=== PATIENT | female | born 1960 | race Caucasian/White ===

== ENCOUNTER 2017-02-04 19:57 | Inpatient (IN) | payer OTHER ==
[~2017-02-04] VITALS: Ht 165.1 cm; Wt 96.3 kg
[~2017-02-04 19:57] MED LIST: ALPRAZOLAM0.25 M2 PO; ASPIRIN81 M2 PO; AUGMENTIN875 MG PO; BACLOFEN20 MG PO; BACTRIM,SEPT1 TABLET PO; BETHANECHOL CHL25 MG PO; CARAFATE100 MG/ML PO; CEFUROXIME500 MG PO; CHERATUSSIN AC473 ML PO; CIPRO500 MG PO; CIPROFLOXACIN500 M1 PO; CLINDAMYCIN HC300 MG PO; CLOTRIMAZOLE10 MG PO; COLACE100 MG PO; COMPLEX B-1001 EACH PO; CYMBALTA60 MG PO; DOCUSATE SODIU100 MG PO; DULOXETINE HCL60 MG PO; FLAGYL500 MG PO; HUMALOG100 UNIT/1 SC; HUMALOG100 UNIT/2 SC; HUMULIN R100 UNITS/ SC; HUMULIN R500 UNITS/ SC; INDOCIN50 MG PO; INSULIN PUMP SCCONT; KEFLEX500 MG PO; LANTUS 10100 UNITS/ PO; LASIX40 MG PO; LEVOTHYROXINE100 MCG PO; LEVOTHYROXINE88 MCG PO; LEVOXYL100 MCG PO; LISINOPRIL40 MG PO; LO-DOSE ASPIRIN81 M1 PO; LOVAZA1 GM PO; LOW DOSE ASPIRI81 M1 PO; LOW DOSE ASPIRI81 M2 PO; LYRICA300 MG PO; MAXALT10 MG PO; MIRALAX17 GM PO; MIRALAX255 GM PO; NAPROXEN500 MG PO; NORCO 10/3251 TABLET PO; NORCO 5/3251 TABLET PO; NORTRIPTYLINE H50 MG PO; NOVOLIN,HU100 UNITS1 SQ; PERCOCET 5/31 TABLET PO; POLYETHYLENE GL17 GM PO; PRAVACHOL20 MG PO; RANITIDINE HCL300 MG; RANITIDINE HCL300 MG PO; RIZATRIPTAN10 MG PO; SKELAXIN400 M1 PO; TENORMIN25 MG PO; TENORMIN50 MG PO; TESSALON200 MG PO; TOPAMAX25 MG PO; TOPIRAMATE25 MG PO; TRAMADOL HCL50 MG PO; ULTRAM50 MG PO; VENTOLIN HFA18 GM IH; VICTOZA0.6 MG/0.1; VITAMIN B-6200 MG PO; VITAMIN D-32000 UNI2 PO; VITAMIN D32000 UNIT PO; XANAX0.25 MG PO; ZANTAC300 MG PO; ZESTRIL40 MG PO; ZOFRAN4 MG PO; [UNRECOGNIZED DRUG - OTHER] SQ
[2017-02-04 20:36] LABS: EOSINOPHIL (%) 0.1 % (0-5); HEMATOCRIT 41.2 % (36.0-46.0); IMMATURE GRANULOCYTE (%) 0.4 % (0.0-0.7); IMMATURE GRANULOCYTE COUNT 0.1 K/uL; INSTRUMENT ABS NEUTROPHIL CT 13.2 K/uL; LYMPHOCYTE COUNT 0.4 K/uL (1.0-2.8); MCH 27.3 PG (29.0-34.0); MCHC 32.5 G/DL (30.0-36.0); MCV 84.1 FL (83-99); MEAN PLAT.VOLUME 10.1 uM^3 (9.5-12.4); MONOCYTE COUNT 0.4 K/uL (0-0.8); NEUTROPHIL (%) 93.7 % (45-76); NEUTROPHIL COUNT 13.2 K/uL (1.8-6.4); PLATELET COUNT 230 K/uL (156-360); RBC DIS.WIDTH-CV 14.7 % (11.8-14.6); RBC DIS.WIDTH-SD 45.1 % (39-53); WHITE BLOOD COUNT 14.1 K/uL (4.1-10.2)
[2017-02-04 20:54] LABS: ADD MIUA? YES; BILIRUBIN NEGATIVE; BLOOD MODERATE; COLOR YELLOW ((YELLOW)); GLUCOSE (STRIP) NEGATIVE; KETONES NEGATIVE; LEUKOCYTES LARGE; NITRITE NEGATIVE; PROTEIN (STRIP) NEGATIVE; SPECIFIC GRAVITY 1.009 (1.000-1.030); UROBILINOGEN 0.2 MG/DL (0.2-1.0)
[2017-02-04 20:54] LABS: CHLORIDE 97 mEq/L (99-109); SODIUM 133 mEq/L (136-147)
[2017-02-04 20:56] LABS: GLUCOSE 130 mg/dL (70-99)
[2017-02-04 20:57] LABS: ANION GAP 13 MEQ/L (2-14)
[2017-02-04 20:59] LABS: INFLUENZA A VIRAL ANTIGEN NEGATIVE; INFLUENZA B VIRAL ANTIGEN NEGATIVE
[2017-02-04 20:59] LABS: ALKALINE PHOSPHATASE 111 IU/L (3-129)
[2017-02-04 21:00] LABS: GFR ESTIMATE (CALCULATED) 31 mL/min/
[2017-02-04 21:01] LABS: UREA NITROGEN (BUN) 21 mg/dL (9-23)
[2017-02-04 21:03] LABS: TROP-I INTERPRETATION NEGATIVE; TROPONIN-I < 0.01 ng/mL (0.0-0.30)
[2017-02-04 21:12] LABS: BACTERIA 3+ /HPF; EPITHELIAL CELLS 1+ /HPF; UCUL ADDED? YES; WHITE BLOOD CELLS TNTC /HPF (0-5)
[2017-02-04 21:13] LABS: MUCUS NONE SEEN /LPF; RED BLOOD CELLS 20-30 /HPF (0-5)
[2017-02-04] MEDS ORDERED: LYRICA300 MG PO (23:08)
[2017-02-04] MEDS ORDERED: DAILY VITAMIN1 EAC4 PO (23:09)
[2017-02-04] MEDS ORDERED: NORTRIPTYLINE H75 MG PO (23:10)
[2017-02-04] MEDS ORDERED: LAMICTAL25 MG PO (23:11)
[2017-02-05 02:12] VITALS: BP 132/61
[2017-02-05 07:42] LABS: POINT-OF-CARE METER ID UU14162508
[2017-02-05 08:12] VITALS: BP 108/56
[2017-02-05 12:21] LABS: POINT-OF-CARE METER ID UU14162508
[2017-02-05 13:45] LABS: TROP-I INTERPRETATION NEGATIVE; TROPONIN-I 0.02 ng/mL (0.0-0.30)
[2017-02-05 13:58] VITALS: BP 172/74
[2017-02-05 14:04] VITALS: BP 165/70
[2017-02-05 16:53] VITALS: BP 138/63
[2017-02-05 21:25] LABS: TROP-I INTERPRETATION NEGATIVE; TROPONIN-I 0.04 ng/mL (0.0-0.30)
[2017-02-06] VITALS (8 sets, daily range): BP systolic 112–185; BP diastolic 53–79
[2017-02-06 00:28] LABS: C DIFF TOXIN NEGATIVE (NEGATIVE)
[2017-02-06 00:36] LABS: PROBE CHECK PASS; SPECIMEN PROCESSING CONTROL PASS
[2017-02-06 07:51] LABS: EOSINOPHIL (%) 0.8 % (0-5); EOSINOPHIL COUNT 0.1 K/uL (0-0.3); HEMATOCRIT 30.7 % (36.0-46.0); IMMATURE GRANULOCYTE (%) 0.5 % (0.0-0.7); INSTRUMENT ABS NEUTROPHIL CT 5.4 K/uL; LYMPHOCYTE COUNT 0.4 K/uL (1.0-2.8); MCH 27.2 PG (29.0-34.0); MCHC 32.6 G/DL (30.0-36.0); MCV 83.7 FL (83-99); MONOCYTE (%) 5.8 % (3-12); MONOCYTE COUNT 0.4 K/uL (0-0.8); NEUTROPHIL (%) 86.9 % (45-76); NEUTROPHIL COUNT 5.4 K/uL (1.8-6.4); RBC DIS.WIDTH-CV 15.3 % (11.8-14.6); RBC DIS.WIDTH-SD 46.8 % (39-53)
[2017-02-06 07:55] LABS: ALKALINE PHOSPHATASE 86 IU/L (3-129); ANION GAP 10 MEQ/L (2-14); CHLORIDE 95 MEQ/L (99-109); DIRECT BILIRUBIN 1.2 mg/dL (0.0-0.3); GFR ESTIMATE (CALCULATED) 49 mL/min/; POTASSIUM 4.4 MEQ/L (3.7-5.4); RED BLOOD COUNT 3.67 M/uL (3.80-5.20); SAMPLE HEMOLYSIS CHECK 0; SAMPLE ICTERIC CHECK 0; SAMPLE LIPEMIA CHECK 0; SODIUM 130 MEQ/L (136-147); TOTAL BILIRUBIN 1.8 MG/DL (0.0-1.0); UREA NITROGEN (BUN) 20 mg/dL (9-23); WHITE BLOOD COUNT 6.2 K/uL (4.1-10.2)
[2017-02-06 07:56] LABS: GLUCOSE 325 mg/dL (70-99); TROP-I INTERPRETATION NEGATIVE; TROPONIN-I 0.04 ng/mL (0.0-0.30)
[2017-02-06 08:29] LABS: MEAN PLAT.VOLUME 10.7 uM^3 (9.5-12.4); PLAT.SUFFICIENCY DECREASED
[2017-02-06 08:33] LABS: PLATELET COUNT 117 K/uL (156-360)
[2017-02-06 09:38] LABS: LIPASE 6 U/L (1.0-51.0)
[2017-02-06 11:51] LABS: HBSG INDEX 0.24
[2017-02-06 11:52] LABS: ANTI-HEPATITIS A VIRUS (IGM) Nonreactive; HAV INDEX 0.12; HPCA INDEX 0.12
[2017-02-06 11:54] LABS: ANTI-HEPATITIS B CORE (IGM) Nonreactive; HBC IgM INDEX 0.09
[2017-02-07] VITALS (8 sets, daily range): BP systolic 109–184; BP diastolic 53–83
[2017-02-07 07:30] LABS: ALKALINE PHOSPHATASE 91 IU/L (3-129); ANION GAP 8 MEQ/L (2-14); CHLORIDE 95 MEQ/L (99-109); GFR ESTIMATE (CALCULATED) > 59 mL/min/; GLUCOSE 283 mg/dL (70-99); POTASSIUM 4.4 MEQ/L (3.7-5.4); SAMPLE HEMOLYSIS CHECK 0; SAMPLE ICTERIC CHECK 0; SAMPLE LIPEMIA CHECK 0; SODIUM 132 MEQ/L (136-147); TOTAL BILIRUBIN 1.5 MG/DL (0.0-1.0); UREA NITROGEN (BUN) 18 mg/dL (9-23)
[2017-02-07 07:34] LABS: EOSINOPHIL COUNT 0.1 K/uL (0-0.3); HEMATOCRIT 33.5 % (36.0-46.0); IMMATURE GRANULOCYTE (%) 0.6 % (0.0-0.7); INSTRUMENT ABS NEUTROPHIL CT 3.9 K/uL; LYMPHOCYTE COUNT 0.4 K/uL (1.0-2.8); MCH 27.4 PG (29.0-34.0); MCHC 32.8 G/DL (30.0-36.0); MCV 83.5 FL (83-99); MONOCYTE (%) 8.6 % (3-12); MONOCYTE COUNT 0.4 K/uL (0-0.8); NEUTROPHIL (%) 81.7 % (45-76); NEUTROPHIL COUNT 3.9 K/uL (1.8-6.4); RBC DIS.WIDTH-CV 15.9 % (11.8-14.6); RBC DIS.WIDTH-SD 48.3 % (39-53); RED BLOOD COUNT 4.01 M/uL (3.80-5.20); WHITE BLOOD COUNT 4.8 K/uL (4.1-10.2)
[2017-02-07 07:42] LABS: PLATELET COUNT 214 K/uL (156-360)
[2017-02-07 14:34] LABS: POINT-OF-CARE METER ID UU14162508
[2017-02-08 03:52] VITALS: BP 149/63
[2017-02-08 08:08] LABS: ALKALINE PHOSPHATASE 90 IU/L (3-129); ANION GAP 7 MEQ/L (2-14); CHLORIDE 95 MEQ/L (99-109); GFR ESTIMATE (CALCULATED) > 59 mL/min/; GLUCOSE 304 mg/dL (70-99); POTASSIUM 4.1 MEQ/L (3.7-5.4); SAMPLE HEMOLYSIS CHECK 0; SAMPLE ICTERIC CHECK 0; SAMPLE LIPEMIA CHECK 0; SODIUM 131 MEQ/L (136-147); UREA NITROGEN (BUN) 21 mg/dL (9-23)
[2017-02-08 08:16] LABS: EOSINOPHIL (%) 1.8 % (0-5); EOSINOPHIL COUNT 0.1 K/uL (0-0.3); IMMATURE GRANULOCYTE COUNT 0.1 K/uL; INSTRUMENT ABS NEUTROPHIL CT 2.6 K/uL; LYMPHOCYTE COUNT 0.7 K/uL (1.0-2.8); MCH 26.6 PG (29.0-34.0); MCHC 32.2 G/DL (30.0-36.0); MCV 82.7 FL (83-99); MONOCYTE (%) 13.6 % (3-12); MONOCYTE COUNT 0.5 K/uL (0-0.8); NEUTROPHIL (%) 65.6 % (45-76); NEUTROPHIL COUNT 2.6 K/uL (1.8-6.4); RBC DIS.WIDTH-CV 15.2 % (11.8-14.6); RBC DIS.WIDTH-SD 46.1 % (39-53); RED BLOOD COUNT 3.87 M/uL (3.80-5.20)
[2017-02-08 08:19] LABS: MEAN PLAT.VOLUME 10.3 uM^3 (9.5-12.4); PLAT.SUFFICIENCY DECREASED; PLATELET COUNT 121 K/uL (156-360)
[2017-02-08 08:48] VITALS: BP 160/71
[2017-02-08 12:37] VITALS: BP 168/72
[2017-02-08 12:54] LABS: GLUCOSE 353 mg/dL (70-99)
[2017-02-08 17:04] LABS: GLUCOSE 389 mg/dL (70-99)
[2017-02-08 17:19] VITALS: BP 158/70
[2017-02-08 19:27] VITALS: BP 168/73
[2017-02-08 21:21] LABS: POINT-OF-CARE METER ID UU14162508
[2017-02-08 23:29] VITALS: BP 164/71
[2017-02-09 03:09] VITALS: BP 142/70
[2017-02-09 08:00] VITALS: BP 156/67
[2017-02-09 13:15] LABS: POINT-OF-CARE METER ID UU14162508
[2017-02-09 16:00] VITALS: BP 169/77
[2017-02-09 17:28] LABS: POINT-OF-CARE METER ID UU14162508
[2017-02-09 19:45] VITALS: BP 142/76
[2017-02-09 21:37] LABS: POINT-OF-CARE METER ID UU14162508
[2017-02-10 00:15] VITALS: BP 128/68
[2017-02-10 03:13] VITALS: BP 136/72
[2017-02-10 06:46] LABS: POINT-OF-CARE METER ID UU14162508
[2017-02-10 07:27] LABS: ANION GAP 7 MEQ/L (2-14); CHLORIDE 93 MEQ/L (99-109); GFR ESTIMATE (CALCULATED) > 59 mL/min/; GLUCOSE 342 mg/dL (70-99); POTASSIUM 4.6 MEQ/L (3.7-5.4); SAMPLE HEMOLYSIS CHECK 0; SAMPLE ICTERIC CHECK 0; SAMPLE LIPEMIA CHECK 0; SODIUM 132 MEQ/L (136-147); TOTAL BILIRUBIN 0.8 MG/DL (0.0-1.0); UREA NITROGEN (BUN) 20 mg/dL (9-23)
[2017-02-10 07:28] LABS: ALKALINE PHOSPHATASE 129 IU/L (3-129)
[2017-02-10 07:30] LABS: HEMATOCRIT 35.4 % (36.0-46.0); MCH 26.8 PG (29.0-34.0); MCHC 32.2 G/DL (30.0-36.0); MCV 83.3 FL (83-99); MEAN PLAT.VOLUME 10.3 uM^3 (9.5-12.4); RBC DIS.WIDTH-CV 14.8 % (11.8-14.6); RBC DIS.WIDTH-SD 44.9 % (39-53); RED BLOOD COUNT 4.25 M/uL (3.80-5.20)
[2017-02-10 07:36] LABS: PLATELET COUNT 174 K/uL (156-360); WHITE BLOOD COUNT 5.7 K/uL (4.1-10.2)
[2017-02-10 07:48] LABS: EOSINOPHIL (%) 1.4 % (0-5); EOSINOPHIL COUNT 0.1 K/uL (0-0.3); IMMATURE GRANULOCYTE (%) 4.2 % (0.0-0.7); IMMATURE GRANULOCYTE COUNT 0.2 K/uL; INSTRUMENT ABS NEUTROPHIL CT 3.5 K/uL; LYMPHOCYTE COUNT 1.3 K/uL (1.0-2.8); MONOCYTE (%) 9.9 % (3-12); MONOCYTE COUNT 0.6 K/uL (0-0.8); NEUTROPHIL (%) 61.2 % (45-76); NEUTROPHIL COUNT 3.5 K/uL (1.8-6.4)
[2017-02-10 08:36] VITALS: BP 153/71
[2017-02-10 10:42] VITALS: BP 144/69
[2017-02-10 12:21] LABS: POINT-OF-CARE METER ID UU14162508
[2017-02-10 20:21] VITALS: BP 172/66
[2017-02-11 00:19] VITALS: BP 170/70
[2017-02-11 04:31] VITALS: BP 168/74
[2017-02-11 06:34] LABS: POINT-OF-CARE METER ID UU14162508
[2017-02-11 06:55] LABS: HEMATOCRIT 35.8 % (36.0-46.0); MCH 26.7 PG (29.0-34.0); MCHC 32.4 G/DL (30.0-36.0); MCV 82.3 FL (83-99); MEAN PLAT.VOLUME 9.8 uM^3 (9.5-12.4); PLATELET COUNT 206 K/uL (156-360); RBC DIS.WIDTH-CV 14.7 % (11.8-14.6); RBC DIS.WIDTH-SD 44.2 % (39-53); RED BLOOD COUNT 4.35 M/uL (3.80-5.20); WHITE BLOOD COUNT 6.8 K/uL (4.1-10.2)
[2017-02-11 07:21] LABS: ALKALINE PHOSPHATASE 143 IU/L (3-129); ANION GAP 7 MEQ/L (2-14); CHLORIDE 91 MEQ/L (99-109); GFR ESTIMATE (CALCULATED) > 59 mL/min/; GLUCOSE 336 mg/dL (70-99); POTASSIUM 4.2 MEQ/L (3.7-5.4); SAMPLE HEMOLYSIS CHECK 0; SAMPLE ICTERIC CHECK 0; SAMPLE LIPEMIA CHECK 0; SODIUM 129 MEQ/L (136-147); TOTAL BILIRUBIN 0.7 MG/DL (0.0-1.0); UREA NITROGEN (BUN) 22 mg/dL (9-23)
[2017-02-11 08:00] VITALS: BP 155/79
[2017-02-11 08:30] LABS: ABS NEUTROPHIL COUNT 5.3; ANISOCYTOSIS 1+; ATYPICAL LYMPHOCYTE 0.9 %; BAND NEUTROPHILS 3.5 % (0-8.0); BASOPHILS 0.9 %; EOSINOPHIL ABS CT 0.1; EOSINOPHILS 0.9 % (0-5.0); INSTRUMENT ABS NEUTROPHIL CT 4.2 K/uL; LYMPHOCYTES 9.6 % (15.0-45.0); METAMYELOCYTES 1.7 %; MYELOCYTES 4.3 %; PLAT.SUFFICIENCY ADEQUATE; SEG.NEUTROPHILS 73.9 % (46.0-76.0)
[2017-02-11 12:22] LABS: POINT-OF-CARE METER ID UU14162508
[2017-02-11 12:36] VITALS: BP 140/80
[2017-02-11 13:05] LABS: GLUCOSE 400 mg/dL (70-99)
[2017-02-11 16:35] LABS: POINT-OF-CARE METER ID UU14162508
[2017-02-11 20:21] VITALS: BP 170/56
[2017-02-11 21:23] LABS: POINT-OF-CARE METER ID UU14162508
[2017-02-12] VITALS (7 sets, daily range): BP systolic 137–170; BP diastolic 50–72
[2017-02-12 06:10] LABS: POINT-OF-CARE METER ID UU14162508
[2017-02-12 06:52] LABS: HEMATOCRIT 34.1 % (36.0-46.0); MCH 26.7 PG (29.0-34.0); MCHC 32.8 G/DL (30.0-36.0); MCV 81.4 FL (83-99); MEAN PLAT.VOLUME 9.6 uM^3 (9.5-12.4); PLATELET COUNT 207 K/uL (156-360); RBC DIS.WIDTH-CV 14.9 % (11.8-14.6); RBC DIS.WIDTH-SD 43.8 % (39-53); RED BLOOD COUNT 4.19 M/uL (3.80-5.20); WHITE BLOOD COUNT 7.1 K/uL (4.1-10.2)
[2017-02-12 07:19] LABS: ABS NEUTROPHIL COUNT 4.8; ANISOCYTOSIS 1+; ATYPICAL LYMPHOCYTE 1.7 %; BAND NEUTROPHILS 3.5 % (0-8.0); BASOPHILS 1.7 %; EOSINOPHIL ABS CT 0; INSTRUMENT ABS NEUTROPHIL CT 4.6 K/uL; LYMPHOCYTES 21.7 % (15.0-45.0); MICROCYTOSIS 1+; PLAT.SUFFICIENCY ADEQUATE; SEG.NEUTROPHILS 64.4 % (46.0-76.0); SMUDGE CELLS 0.9
[2017-02-12 07:28] LABS: ALKALINE PHOSPHATASE 131 IU/L (3-129); ANION GAP 8 MEQ/L (2-14); CHLORIDE 92 MEQ/L (99-109); GFR ESTIMATE (CALCULATED) > 59 mL/min/; GLUCOSE 335 mg/dL (70-99); POTASSIUM 4.3 MEQ/L (3.7-5.4); SAMPLE HEMOLYSIS CHECK 0; SAMPLE ICTERIC CHECK 0; SAMPLE LIPEMIA CHECK 0; SODIUM 128 MEQ/L (136-147); TOTAL BILIRUBIN 0.7 MG/DL (0.0-1.0); UREA NITROGEN (BUN) 20 mg/dL (9-23)
[2017-02-12] MEDS ORDERED: CEFTIN500 MG PO (09:12)
[2017-02-12 16:36] LABS: POINT-OF-CARE METER ID UU14162508
[2017-02-12 20:10] LABS: POINT-OF-CARE METER ID UU14162508
[2017-02-12 21:36] LABS: POINT-OF-CARE METER ID UU14162508
[2017-02-13 03:11] VITALS: BP 118/57
[2017-02-13 08:13] VITALS: BP 118/59
[2017-02-13 08:50] LABS: Estimated Average Glucose 260 mg/dL (70-123); HEMOGLOBIN A1c (GLYCOHEMOGLOB) 10.7 % HGB (Below 5.7)
[2017-02-13 11:35] LABS: POINT-OF-CARE METER ID UU14162508
[2017-02-13 12:18] LABS: POINT-OF-CARE METER ID UU14162508
[2017-02-13 12:30] VITALS: BP 119/64
[2017-02-13 12:57] LABS: POINT-OF-CARE METER ID UU14162508
[2017-02-13 13:19] LABS: POINT-OF-CARE METER ID UU14162508
[2017-02-13 17:38] LABS: POINT-OF-CARE METER ID UU14162508
[2017-02-13 18:34] LABS: POINT-OF-CARE METER ID UU14162508
[2017-02-14] VITALS (7 sets, daily range): BP systolic 97–157; BP diastolic 50–70
[2017-02-14 07:22] LABS: EOSINOPHIL (%) 0.5 % (0-5); EOSINOPHIL COUNT 0.1 K/uL (0-0.3); HEMATOCRIT 35.9 % (36.0-46.0); IMMATURE GRANULOCYTE (%) 3.7 % (0.0-0.7); IMMATURE GRANULOCYTE COUNT 0.5 K/uL; INSTRUMENT ABS NEUTROPHIL CT 9.9 K/uL; LYMPHOCYTE COUNT 1.5 K/uL (1.0-2.8); MCH 26.9 PG (29.0-34.0); MCHC 32.6 G/DL (30.0-36.0); MCV 82.5 FL (83-99); MEAN PLAT.VOLUME 9.9 uM^3 (9.5-12.4); MONOCYTE (%) 9.1 % (3-12); MONOCYTE COUNT 1.2 K/uL (0-0.8); NEUTROPHIL (%) 75.1 % (45-76); NEUTROPHIL COUNT 9.9 K/uL (1.8-6.4); RBC DIS.WIDTH-SD 45.9 % (39-53); RED BLOOD COUNT 4.35 M/uL (3.80-5.20)
[2017-02-14 07:28] LABS: PLATELET COUNT 313 K/uL (156-360); WHITE BLOOD COUNT 13.1 K/uL (4.1-10.2)
[2017-02-14 07:33] LABS: GLUCOSE 79 mg/dL (70-99)
[2017-02-14 07:36] LABS: ALKALINE PHOSPHATASE 133 IU/L (3-129); ANION GAP 12 MEQ/L (2-14); CHLORIDE 96 MEQ/L (99-109); POTASSIUM 4.7 MEQ/L (3.7-5.4); SAMPLE HEMOLYSIS CHECK 0; SAMPLE ICTERIC CHECK 0; SAMPLE LIPEMIA CHECK 0
[2017-02-14 07:38] LABS: GFR ESTIMATE (CALCULATED) 35 mL/min/; GLUCOSE 77 mg/dL (70-99); SODIUM 135 MEQ/L (136-147); TOTAL BILIRUBIN 0.5 MG/DL (0.0-1.0); UREA NITROGEN (BUN) 35 mg/dL (9-23)
[2017-02-14 11:55] LABS: POINT-OF-CARE METER ID UU14162508
[2017-02-14 12:12] LABS: POINT-OF-CARE METER ID UU14162508
[2017-02-14 15:04] LABS: POINT-OF-CARE METER ID UU13113655; POINT-OF-CARE USER ID ENVKLS06
[2017-02-14 17:50] LABS: POINT-OF-CARE METER ID UU14162508
[2017-02-14 23:39] LABS: POINT-OF-CARE METER ID UU14162508
[2017-02-15 03:52] VITALS: BP 116/53
[2017-02-15 07:16] LABS: EOSINOPHIL (%) 0.3 % (0-5); EOSINOPHIL COUNT 0.1 K/uL (0-0.3); HEMATOCRIT 35.1 % (36.0-46.0); IMMATURE GRANULOCYTE (%) 1.4 % (0.0-0.7); IMMATURE GRANULOCYTE COUNT 0.2 K/uL; INSTRUMENT ABS NEUTROPHIL CT 13.8 K/uL; LYMPHOCYTE COUNT 1.5 K/uL (1.0-2.8); MCH 26.5 PG (29.0-34.0); MCHC 31.9 G/DL (30.0-36.0); MCV 83.2 FL (83-99); MEAN PLAT.VOLUME 9.8 uM^3 (9.5-12.4); MONOCYTE (%) 8.2 % (3-12); MONOCYTE COUNT 1.4 K/uL (0-0.8); NEUTROPHIL (%) 81.1 % (45-76); NEUTROPHIL COUNT 13.8 K/uL (1.8-6.4); PLATELET COUNT 327 K/uL (156-360); RBC DIS.WIDTH-CV 15.6 % (11.8-14.6); RBC DIS.WIDTH-SD 47.4 % (39-53); RED BLOOD COUNT 4.22 M/uL (3.80-5.20)
[2017-02-15 08:15] VITALS: BP 106/44
[2017-02-15 08:52] LABS: ALKALINE PHOSPHATASE 101 IU/L (3-129); ANION GAP 11 MEQ/L (2-14); CHLORIDE 94 MEQ/L (99-109); GFR ESTIMATE (CALCULATED) 35 mL/min/; GLUCOSE 263 mg/dL (70-99); SAMPLE HEMOLYSIS CHECK 0; SAMPLE ICTERIC CHECK 0; SAMPLE LIPEMIA CHECK 0; SODIUM 128 MEQ/L (136-147); UREA NITROGEN (BUN) 36 mg/dL (9-23)
[2017-02-15 12:00] VITALS: BP 122/58
[2017-02-15 12:16] LABS: POINT-OF-CARE USER ID ENVKC36
[2017-02-15 15:45] VITALS: BP 119/57
[2017-02-15 16:42] LABS: POINT-OF-CARE METER ID UU13113781; POINT-OF-CARE USER ID ENVKC36
[2017-02-15 19:42] VITALS: BP 119/56
[2017-02-15 20:57] LABS: POINT-OF-CARE METER ID UU14174216
[2017-02-15 23:00] VITALS: BP 162/71
[2017-02-16 05:55] VITALS: BP 120/58
[2017-02-16 07:05] LABS: HEMATOCRIT 31.3 % (36.0-46.0); MCH 26.8 PG (29.0-34.0); MCHC 31.3 G/DL (30.0-36.0); MCV 85.5 FL (83-99); MEAN PLAT.VOLUME 9.7 uM^3 (9.5-12.4); PLATELET COUNT 256 K/uL (156-360); RBC DIS.WIDTH-CV 15.4 % (11.8-14.6); RBC DIS.WIDTH-SD 48.2 % (39-53); RED BLOOD COUNT 3.66 M/uL (3.80-5.20); WHITE BLOOD COUNT 9.1 K/uL (4.1-10.2)
[2017-02-16 07:15] LABS: ALKALINE PHOSPHATASE 109 IU/L (3-129); ANION GAP 8 MEQ/L (2-14); CHLORIDE 102 MEQ/L (99-109); GFR ESTIMATE (CALCULATED) 45 mL/min/; POTASSIUM 4.4 MEQ/L (3.7-5.4); SAMPLE HEMOLYSIS CHECK 0; SAMPLE ICTERIC CHECK 0; SAMPLE LIPEMIA CHECK 0; UREA NITROGEN (BUN) 23 mg/dL (9-23)
[2017-02-16 07:18] LABS: GLUCOSE 99 mg/dL (70-99); SODIUM 137 MEQ/L (136-147); TOTAL BILIRUBIN 0.5 MG/DL (0.0-1.0)
[2017-02-16 07:23] VITALS: BP 122/58
[2017-02-16 07:54] LABS: POINT-OF-CARE METER ID UU13113781
[2017-02-16 11:05] VITALS: BP 118/58
[2017-02-16 11:21] LABS: POINT-OF-CARE METER ID UU13113781
[2017-02-16 16:23] LABS: POINT-OF-CARE METER ID UU13113781
[2017-02-16 16:44] VITALS: BP 139/62
[2017-02-16 20:40] VITALS: BP 159/68
[2017-02-17] VITALS (7 sets, daily range): BP systolic 135–182; BP diastolic 56–86
[2017-02-17 00:34] LABS: POINT-OF-CARE METER ID UU13113781
[2017-02-17 04:02] LABS: POINT-OF-CARE METER ID UU13113781
[2017-02-17 05:20] LABS: HEMATOCRIT 32.3 % (36.0-46.0); MCH 26.8 PG (29.0-34.0); MCHC 31.3 G/DL (30.0-36.0); MCV 85.7 FL (83-99); MEAN PLAT.VOLUME 9.4 uM^3 (9.5-12.4); PLATELET COUNT 242 K/uL (156-360); RED BLOOD COUNT 3.77 M/uL (3.80-5.20); WHITE BLOOD COUNT 6.6 K/uL (4.1-10.2)
[2017-02-17 06:16] LABS: ALKALINE PHOSPHATASE 105 IU/L (3-129); ANION GAP 10 MEQ/L (2-14); CHLORIDE 101 MEQ/L (99-109); GFR ESTIMATE (CALCULATED) > 59 mL/min/; GLUCOSE 97 mg/dL (70-99); POTASSIUM 4.7 MEQ/L (3.7-5.4); SAMPLE HEMOLYSIS CHECK 0; SAMPLE ICTERIC CHECK 0; SAMPLE LIPEMIA CHECK 0; SODIUM 138 MEQ/L (136-147); TOTAL BILIRUBIN 0.4 MG/DL (0.0-1.0); UREA NITROGEN (BUN) 20 mg/dL (9-23)
[2017-02-17 08:37] LABS: POINT-OF-CARE METER ID UU14174216
[2017-02-17 11:40] LABS: POINT-OF-CARE METER ID UU14174216
[2017-02-17 15:44] LABS: POINT-OF-CARE METER ID UU13113781
[2017-02-17 20:41] LABS: POINT-OF-CARE METER ID UU14174216
[2017-02-18 02:26] LABS: POINT-OF-CARE METER ID UU13113781
[2017-02-18 02:59] LABS: POINT-OF-CARE METER ID UU13113781
[2017-02-18 03:11] VITALS: BP 138/78
[2017-02-18 08:23] LABS: EOSINOPHIL (%) 1.3 % (0-5); EOSINOPHIL COUNT 0.1 K/uL (0-0.3); HEMATOCRIT 34.6 % (36.0-46.0); IMMATURE GRANULOCYTE (%) 1.7 % (0.0-0.7); IMMATURE GRANULOCYTE COUNT 0.1 K/uL; INSTRUMENT ABS NEUTROPHIL CT 3.5 K/uL; LYMPHOCYTE COUNT 0.8 K/uL (1.0-2.8); MCH 26.5 PG (29.0-34.0); MCHC 31.5 G/DL (30.0-36.0); MONOCYTE (%) 16.6 % (3-12); MONOCYTE COUNT 0.9 K/uL (0-0.8); NEUTROPHIL (%) 64.9 % (45-76); NEUTROPHIL COUNT 3.5 K/uL (1.8-6.4); PLATELET COUNT 272 K/uL (156-360); RBC DIS.WIDTH-CV 14.6 % (11.8-14.6); RBC DIS.WIDTH-SD 45.1 % (39-53); RED BLOOD COUNT 4.12 M/uL (3.80-5.20); WHITE BLOOD COUNT 5.3 K/uL (4.1-10.2)
[2017-02-18 08:44] LABS: ANION GAP 7 MEQ/L (2-14); CHLORIDE 100 MEQ/L (99-109); GFR ESTIMATE (CALCULATED) > 59 mL/min/; POTASSIUM 4.8 MEQ/L (3.7-5.4); SAMPLE HEMOLYSIS CHECK 0; SAMPLE ICTERIC CHECK 0; SAMPLE LIPEMIA CHECK 0; SODIUM 137 MEQ/L (136-147); UREA NITROGEN (BUN) 16 mg/dL (9-23)
[2017-02-18 08:46] LABS: GLUCOSE 61 mg/dL (70-99)
[2017-02-18 08:48] VITALS: BP 155/67
[2017-02-18 11:07] VITALS: BP 135/58
[2017-02-18 15:14] VITALS: BP 160/70
[2017-02-18 20:30] VITALS: BP 166/72
[2017-02-18 21:27] LABS: POINT-OF-CARE METER ID UU14174216; POINT-OF-CARE USER ID ENVMNS
[2017-02-19 00:48] VITALS: BP 170/66
[2017-02-19 06:16] VITALS: BP 152/74
[2017-02-19 08:32] VITALS: BP 136/66
[2017-02-19 12:00] VITALS: BP 156/70
[2017-02-19 14:30] VITALS: BP 168/78
[2017-02-19 15:35] LABS: ADD MIUA? NO; BILIRUBIN NEGATIVE; BLOOD NEGATIVE; COLOR YELLOW ((YELLOW)); GLUCOSE (STRIP) 50; KETONES NEGATIVE; LEUKOCYTES NEGATIVE; NITRITE NEGATIVE; PROTEIN (STRIP) NEGATIVE; SPECIFIC GRAVITY 1.011 (1.000-1.030); UCUL ADDED? NO; UROBILINOGEN 0.2 MG/DL (0.2-1.0)
[2017-02-19 15:43] LABS: HEMATOCRIT 34.8 % (36.0-46.0); MCH 26.8 PG (29.0-34.0); MCHC 32.5 G/DL (30.0-36.0); MCV 82.7 FL (83-99); MEAN PLAT.VOLUME 9.3 uM^3 (9.5-12.4); PLATELET COUNT 279 K/uL (156-360); RBC DIS.WIDTH-SD 45.1 % (39-53); RED BLOOD COUNT 4.21 M/uL (3.80-5.20); WHITE BLOOD COUNT 4.7 K/uL (4.1-10.2)
[2017-02-19 16:34] LABS: POINT-OF-CARE METER ID UU14162508
[2017-02-19 18:57] VITALS: BP 148/68
[2017-02-20 00:01] VITALS: BP 138/58
[2017-02-20 03:57] VITALS: BP 130/58
[2017-02-20 05:07] LABS: POINT-OF-CARE METER ID UU14162508
[2017-02-20 05:32] LABS: POINT-OF-CARE METER ID UU14162508
[2017-02-20 05:43] LABS: POINT-OF-CARE METER ID UU14162508
[2017-02-20 06:50] LABS: POINT-OF-CARE METER ID UU14162508
[2017-02-20 07:20] VITALS: BP 127/60
[2017-02-20 08:37] LABS: EOSINOPHIL (%) 0.9 % (0-5); HEMATOCRIT 34.4 % (36.0-46.0); IMMATURE GRANULOCYTE (%) 3.5 % (0.0-0.7); IMMATURE GRANULOCYTE COUNT 0.2 K/uL; INSTRUMENT ABS NEUTROPHIL CT 2.6 K/uL; LYMPHOCYTE COUNT 0.9 K/uL (1.0-2.8); MCH 26.9 PG (29.0-34.0); MCHC 32.6 G/DL (30.0-36.0); MCV 82.7 FL (83-99); MEAN PLAT.VOLUME 9.4 uM^3 (9.5-12.4); MONOCYTE (%) 19.9 % (3-12); MONOCYTE COUNT 0.9 K/uL (0-0.8); NEUTROPHIL (%) 56.2 % (45-76); NEUTROPHIL COUNT 2.6 K/uL (1.8-6.4); PLATELET COUNT 267 K/uL (156-360); RBC DIS.WIDTH-CV 14.9 % (11.8-14.6); RBC DIS.WIDTH-SD 45.3 % (39-53); RED BLOOD COUNT 4.16 M/uL (3.80-5.20); WHITE BLOOD COUNT 4.6 K/uL (4.1-10.2)
[2017-02-20 09:03] LABS: ANION GAP 10 MEQ/L (2-14); CHLORIDE 94 MEQ/L (99-109); GFR ESTIMATE (CALCULATED) 55 mL/min/; SAMPLE HEMOLYSIS CHECK 0; SAMPLE ICTERIC CHECK 0; SAMPLE LIPEMIA CHECK 0; SODIUM 132 MEQ/L (136-147); UREA NITROGEN (BUN) 23 mg/dL (9-23)
[2017-02-20 09:04] LABS: GLUCOSE 127 mg/dL (70-99)
[2017-02-20 12:00] VITALS: BP 128/62
[2017-02-20 15:05] VITALS: BP 148/67
[2017-02-20 16:18] LABS: POINT-OF-CARE METER ID UU14162508
[2017-02-20 20:30] VITALS: BP 148/52
[2017-02-20 21:09] LABS: POINT-OF-CARE METER ID UU14162508
[2017-02-21 00:31] VITALS: BP 159/66
[2017-02-21 07:28] LABS: EOSINOPHIL (%) 0.6 % (0-5); HEMATOCRIT 37.6 % (36.0-46.0); IMMATURE GRANULOCYTE (%) 3.1 % (0.0-0.7); IMMATURE GRANULOCYTE COUNT 0.2 K/uL; INSTRUMENT ABS NEUTROPHIL CT 2.9 K/uL; MCH 26.3 PG (29.0-34.0); MCHC 31.4 G/DL (30.0-36.0); MCV 83.9 FL (83-99); MEAN PLAT.VOLUME 9.4 uM^3 (9.5-12.4); MONOCYTE (%) 15.8 % (3-12); MONOCYTE COUNT 0.8 K/uL (0-0.8); NEUTROPHIL (%) 60.2 % (45-76); NEUTROPHIL COUNT 2.9 K/uL (1.8-6.4); PLATELET COUNT 331 K/uL (156-360); RBC DIS.WIDTH-CV 15.2 % (11.8-14.6); RBC DIS.WIDTH-SD 46.2 % (39-53); RED BLOOD COUNT 4.48 M/uL (3.80-5.20); WHITE BLOOD COUNT 4.8 K/uL (4.1-10.2)
[2017-02-21 07:42] LABS: ANION GAP 9 MEQ/L (2-14); CHLORIDE 96 MEQ/L (99-109); GFR ESTIMATE (CALCULATED) 49 mL/min/; GLUCOSE 109 mg/dL (70-99); POTASSIUM 4.7 MEQ/L (3.7-5.4); SAMPLE HEMOLYSIS CHECK 0; SAMPLE ICTERIC CHECK 0; SAMPLE LIPEMIA CHECK 0; SODIUM 135 MEQ/L (136-147); UREA NITROGEN (BUN) 26 mg/dL (9-23)
[2017-02-21 07:44] VITALS: BP 141/67
[2017-02-21 10:00] LABS: POINT-OF-CARE METER ID UU14162508
== END 2017-02-21 16:58 | DRG 854 ==
LOC: EME → EDBD 19:57 → 2EAST 02-05 00:48 → EDOF 02-05 00:48 → 4EAST 02-05 00:48 → 2EAST 02-05 02:00 → 4EAST 02-15 11:33 → 2EAST 02-19 14:24
PROVIDERS: Emergency Medicine; Hospitalist; Internal Medicine Gastroenterology; Nurse Practitioner Adult Health; Orthopaedic Surgery; Pediatrics; Physician Assistant; Physician Assistant Medical
PROC: 5A09357 Assistance with Respiratory Ventilation, Less than 24 Consecutive Hours, Continuous Positive Airway Pressure (ICD-10-PCS; principal; 2017-02-05)
PROC: 0HDLXZZ Extraction of Left Lower Leg Skin, External Approach (ICD-10-PCS; 2017-02-06)
PROC: 0FT44ZZ Resection of Gallbladder, Percutaneous Endoscopic Approach (ICD-10-PCS; 2017-02-14)
DX: A41.51 Sepsis due to Escherichia coli [E. coli] (principal); R65.20 Severe sepsis without septic shock; R65.11 Systemic inflammatory response syndrome (SIRS) of non-infectious origin with acute organ dysfunction; N10 Acute pyelonephritis; R17 Unspecified jaundice; N17.9 Acute kidney failure, unspecified; B17.9 Acute viral hepatitis, unspecified; N31.9 Neuromuscular dysfunction of bladder, unspecified; E11.65 Type 2 diabetes mellitus with hyperglycemia; E03.9 Hypothyroidism, unspecified; M79.7 Fibromyalgia; I11.0 Hypertensive heart disease with heart failure; I50.9 Heart failure, unspecified; G50.0 Trigeminal neuralgia; E66.01 Morbid (severe) obesity due to excess calories; Z68.37 Body mass index [BMI] 37.0-37.9, adult; J44.9 Chronic obstructive pulmonary disease, unspecified; R33.9 Retention of urine, unspecified; G47.33 Obstructive sleep apnea (adult) (pediatric); S81.802A Unspecified open wound, left lower leg, initial encounter; W22.8XXA Striking against or struck by other objects, initial encounter; F41.9 Anxiety disorder, unspecified; K80.10 Calculus of gallbladder with chronic cholecystitis without obstruction; E87.5 Hyperkalemia; Z79.4 Long term (current) use of insulin
CPT/HCPCS: 71010; 71020; 73630; 74176; 76705; 78226; 80048; 80053; 80074; 80076; 81003; 82948; 83036; 83605; 83690; 84132 91; 84484; 84999; 85025; 85027; 87040; 87077; 87086; 87186; 87493; 87502; 87801; 88304; 93005; 94640 76; 94660; 94760; 94799; 99202; 99281; 99285; A9510; J0330; J0690; J0696; J1650; J1815; J2250; J2270; J2405; J3010; J3370; J7030; J7050; J7120

== ENCOUNTER 2017-12-21 18:14 | Emergency (ER) | payer OTHER ==
[~2017-12-21] VITALS: Ht 165.1 cm; Wt 102.8 kg
[~2017-12-21 18:14] MED LIST changes: +AMITRIPTYLINE H25 MG PO; +CEFTIN500 MG PO; +CEPHALEXIN500 MG PO; +DAILY VITAMIN1 EAC4 PO; +LAMICTAL25 MG PO; +NORTRIPTYLINE H75 MG PO; +TOPROL XL50 MG PO; +VITAMIN D2000 UNI1 PO
[2017-12-21 20:12] LABS: BASOPHIL (%) 0.3 % (0-1); EOSINOPHIL (%) 1.4 % (0-5); EOSINOPHIL COUNT 0.1 K/uL (0-0.3); HEMATOCRIT 38.7 % (36.0-46.0); HEMOGLOBIN 12.8 G/DL (11.9-15.5); IMMATURE GRANULOCYTE (%) 0.9 % (0.0-0.7); LYMPHOCYTE (%) 20.5 % (15-42); LYMPHOCYTE COUNT 1.9 K/uL (1.0-2.8); MCHC 33.1 G/DL (30.0-36.0); MCV 84.7 FL (83-99); MONOCYTE (%) 7.3 % (3-12); MONOCYTE COUNT 0.7 K/uL (0-0.8); NEUTROPHIL (%) 69.6 % (45-76); NEUTROPHIL COUNT 6.3 K/uL (1.8-6.4); PLATELET COUNT 183 K/uL (156-360); RBC DIS.WIDTH-CV 14.8 % (11.8-14.6); RBC DIS.WIDTH-SD 45.4 % (39-53); RED BLOOD COUNT 4.57 M/uL (3.80-5.20); WHITE BLOOD COUNT 9.1 K/uL (4.1-10.2)
[2017-12-21 20:23] LABS: APPEARANCE CLOUDY ((CLEAR)); BILIRUBIN NEGATIVE; BLOOD SMALL; COLOR YELLOW ((YELLOW)); GLUCOSE (STRIP) NEGATIVE; KETONES NEGATIVE; LEUKOCYTES LARGE; NITRITE POSITIVE; PROTEIN (STRIP) NEGATIVE; SPECIFIC GRAVITY 1.011 (1.000-1.030); UROBILINOGEN 0.2 MG/DL (0.2-1.0)
[2017-12-21 20:25] LABS: ALBUMIN 4.2 g/dL (3.2-4.8); CHLORIDE 105 mEq/L (99-109); POTASSIUM 4.7 mEq/L (3.7-5.4); SODIUM 139 mEq/L (136-147)
[2017-12-21 20:26] LABS: MAGNESIUM 2.2 mg/dL (1.3-2.7)
[2017-12-21 20:28] LABS: GLUCOSE 125 mg/dL (70-99); TOTAL PROTEIN 7.2 g/dL (6.4-8.3)
[2017-12-21 20:30] LABS: TOTAL BILIRUBIN 0.4 mg/dL (0.0-1.0)
[2017-12-21 20:31] LABS: ALKALINE PHOSPHATASE 87 IU/L (3-129); CREATININE 1.8 mg/dL (0.6-1.3); GFR ESTIMATE (CALCULATED) 31 mL/min/; TROP-I INTERPRETATION NEGATIVE; TROPONIN-I < 0.01 ng/mL (0.0-0.30)
[2017-12-21 20:33] LABS: AST (GOT) 35 IU/L (2-34); UREA NITROGEN (BUN) 39 mg/dL (9-23)
[2017-12-21 20:34] LABS: ALT (GPT) 32 IU/L (3-49)
[2017-12-21 20:49] LABS: BACTERIA 2+ /HPF; EPITHELIAL CELLS RARE /HPF; MUCUS TRACE /LPF; RED BLOOD CELLS NONE SEEN /HPF (0-5); UCUL ADDED? YES; WHITE BLOOD CELLS TNTC /HPF (0-5)
[2017-12-21 21:49] LABS: THYROTROPIN (TSH) 0.79 MIU/L (0.4-5.5)
[2017-12-21] MEDS ORDERED: KEFLEX500 MG PO (23:24)
[2017-12-21 23:50] VITALS: BP 174/67
== END 2017-12-22 | disposition home or self-care (01) ==
LOC: EME 18:14
PROVIDERS: Emergency Medicine
DX: N39.0 Urinary tract infection, site not specified (principal); B96.20 Unspecified Escherichia coli [E. coli] as the cause of diseases classified elsewhere; B96.1 Klebsiella pneumoniae [K. pneumoniae] as the cause of diseases classified elsewhere; R25.3 Fasciculation; J44.9 Chronic obstructive pulmonary disease, unspecified; E11.9 Type 2 diabetes mellitus without complications; E78.5 Hyperlipidemia, unspecified; I11.0 Hypertensive heart disease with heart failure; I50.9 Heart failure, unspecified; E03.9 Hypothyroidism, unspecified; M19.90 Unspecified osteoarthritis, unspecified site; G89.29 Other chronic pain; M79.7 Fibromyalgia; L40.9 Psoriasis, unspecified; G47.30 Sleep apnea, unspecified; F41.9 Anxiety disorder, unspecified; F32.9 Major depressive disorder, single episode, unspecified; Z79.891 Long term (current) use of opiate analgesic; Z96.41 Presence of insulin pump (external) (internal); Z79.82 Long term (current) use of aspirin; Z90.49 Acquired absence of other specified parts of digestive tract; Z85.828 Personal history of other malignant neoplasm of skin; Z86.19 Personal history of other infectious and parasitic diseases; Z88.4 Allergy status to anesthetic agent; Z88.2 Allergy status to sulfonamides; Z88.1 Allergy status to other antibiotic agents; Z88.5 Allergy status to narcotic agent; Z88.8 Allergy status to other drugs, medicaments and biological substances
CPT/HCPCS: 80053; 81003; 82948; 83735; 83880; 84443; 84484; 85025; 87077; 87086 GA; 87186; 93005; 99281; 99285; J7040

== ENCOUNTER 2018-01-12 12:29 | Emergency (ER) | payer OTHER ==
[~2018-01-12] VITALS: Ht 165.1 cm; Wt 99.6 kg
[2018-01-12 13:44] LABS: HEMATOCRIT 37.5 % (36.0-46.0); HEMOGLOBIN 12.8 G/DL (11.9-15.5); MCH 28.1 PG (29.0-34.0); MCHC 34.1 G/DL (30.0-36.0); MCV 82.4 FL (83-99); PLATELET COUNT 163 K/uL (156-360); RBC DIS.WIDTH-CV 14.2 % (11.8-14.6); RBC DIS.WIDTH-SD 42.5 % (39-53); RED BLOOD COUNT 4.55 M/uL (3.80-5.20); WHITE BLOOD COUNT 7.3 K/uL (4.1-10.2)
[2018-01-12 13:54] LABS: ALBUMIN 4.5 g/dL (3.2-4.8); CHLORIDE 94 mEq/L (99-109); POTASSIUM 4.6 mEq/L (3.7-5.4); SODIUM 131 mEq/L (136-147)
[2018-01-12 13:57] LABS: TOTAL PROTEIN 7.8 g/dL (6.4-8.3)
[2018-01-12 13:58] LABS: GLUCOSE 463 mg/dL (70-99); TOTAL BILIRUBIN 0.7 mg/dL (0.0-1.0)
[2018-01-12 14:00] LABS: ALKALINE PHOSPHATASE 116 IU/L (3-129); CREATININE 1.4 mg/dL (0.6-1.3); GFR ESTIMATE (CALCULATED) 41 mL/min/
[2018-01-12 14:01] LABS: UREA NITROGEN (BUN) 29 mg/dL (9-23)
[2018-01-12 14:02] LABS: AST (GOT) 27 IU/L (2-34)
[2018-01-12 14:03] LABS: ALT (GPT) 31 IU/L (3-49)
[2018-01-12 16:37] LABS: CARBON DIOXIDE (BICARBONATE) 33.1 MEQ/L (20-31)
[2018-01-12 16:38] LABS: APPEARANCE CLOUDY ((CLEAR)); BILIRUBIN NEGATIVE; BLOOD MODERATE; COLOR YELLOW ((YELLOW)); GLUCOSE (STRIP) >=500; KETONES 5; LEUKOCYTES LARGE; NITRITE POSITIVE; PROTEIN (STRIP) NEGATIVE; SPECIFIC GRAVITY 1.013 (1.000-1.030); UROBILINOGEN 0.2 MG/DL (0.2-1.0)
[2018-01-12 17:10] LABS: BACTERIA 2+ /HPF; EPITHELIAL CELLS RARE /HPF; MUCUS NONE SEEN /LPF; RED BLOOD CELLS 15-20 /HPF (0-5); UCUL ADDED? YES; WHITE BLOOD CELLS TNTC /HPF (0-5)
[2018-01-12] MEDS ORDERED: LEVAQUIN750 MG PO (18:49)
[2018-01-12 19:39] VITALS: BP 142/68
== END 2018-01-12 19:35 | disposition home or self-care (01) ==
LOC: EME 12:29
PROVIDERS: Emergency Medicine
DX: E11.65 Type 2 diabetes mellitus with hyperglycemia (principal); N39.0 Urinary tract infection, site not specified; Z79.4 Long term (current) use of insulin; E03.9 Hypothyroidism, unspecified; E78.5 Hyperlipidemia, unspecified; J44.9 Chronic obstructive pulmonary disease, unspecified; I11.0 Hypertensive heart disease with heart failure; I50.9 Heart failure, unspecified; F32.9 Major depressive disorder, single episode, unspecified; Z85.828 Personal history of other malignant neoplasm of skin; F41.9 Anxiety disorder, unspecified; G47.30 Sleep apnea, unspecified; M79.7 Fibromyalgia; Z79.82 Long term (current) use of aspirin; Z88.5 Allergy status to narcotic agent; Z88.2 Allergy status to sulfonamides; Z88.8 Allergy status to other drugs, medicaments and biological substances
CPT/HCPCS: 80053; 81003; 82010; 82803; 82948; 85027; 87077; 87086; 87186; 99281; 99285; J0696; J7030

== ENCOUNTER 2018-02-27 16:28 | Emergency (ER) | payer OTHER ==
[~2018-02-27] VITALS: Ht 162.6 cm; Wt 99.1 kg
[~2018-02-27 16:28] MED LIST changes: +LEVAQUIN750 MG PO
[2018-02-27 17:08] LABS: HEMATOCRIT 42.1 % (36.0-46.0); HEMOGLOBIN 14.2 G/DL (11.9-15.5); MCHC 33.7 G/DL (30.0-36.0); PLATELET COUNT 212 K/uL (156-360); RBC DIS.WIDTH-CV 14.5 % (11.8-14.6); RBC DIS.WIDTH-SD 43.8 % (39-53); RED BLOOD COUNT 5.07 M/uL (3.80-5.20); WHITE BLOOD COUNT 10.7 K/uL (4.1-10.2)
[2018-02-27 17:19] LABS: ALBUMIN 4.8 g/dL (3.2-4.8); CHLORIDE 100 mEq/L (99-109); POTASSIUM 4.9 mEq/L (3.7-5.4); SODIUM 138 mEq/L (136-147)
[2018-02-27 17:21] LABS: GLUCOSE 151 mg/dL (70-99); TOTAL PROTEIN 8.1 g/dL (6.4-8.3)
[2018-02-27 17:23] LABS: TOTAL BILIRUBIN 0.5 mg/dL (0.0-1.0)
[2018-02-27 17:25] LABS: ALKALINE PHOSPHATASE 90 IU/L (3-129); CREATININE 1.8 mg/dL (0.6-1.3); GFR ESTIMATE (CALCULATED) 31 mL/min/
[2018-02-27 17:26] LABS: UREA NITROGEN (BUN) 38 mg/dL (9-23)
[2018-02-27 17:27] LABS: AST (GOT) 31 IU/L (2-34)
[2018-02-27 17:28] LABS: ALT (GPT) 35 IU/L (3-49); LIPASE 8 U/L (1.0-51.0)
[2018-02-27 18:11] LABS: APPEARANCE CLOUDY ((CLEAR)); BILIRUBIN NEGATIVE; BLOOD SMALL; COLOR YELLOW ((YELLOW)); GLUCOSE (STRIP) NEGATIVE; KETONES NEGATIVE; LEUKOCYTES LARGE; NITRITE NEGATIVE; PROTEIN (STRIP) 30; SPECIFIC GRAVITY 1.012 (1.000-1.030); UROBILINOGEN 0.2 MG/DL (0.2-1.0)
[2018-02-27] MEDS ORDERED: KEFLEX500 MG PO (18:28)
[2018-02-27 18:45] VITALS: BP 156/67
[2018-02-27 19:00] LABS: RED BLOOD CELLS 0-5 /HPF (0-5); WHITE BLOOD CELLS TNTC /HPF (0-5)
[2018-02-27 19:01] LABS: EPITHELIAL CELLS RARE /HPF; MUCUS RARE /LPF
[2018-02-27 19:03] LABS: BACTERIA 1+ /HPF; OTHER BUDDING YEAST= 1+; UCUL ADDED? YES
== END 2018-02-27 18:50 | disposition home or self-care (01) ==
LOC: EXP 16:28 → EME 16:28 → EXP 18:50
PROVIDERS: Physician Assistant
DX: N39.0 Urinary tract infection, site not specified (principal); I11.0 Hypertensive heart disease with heart failure; I50.9 Heart failure, unspecified; M79.7 Fibromyalgia; J44.9 Chronic obstructive pulmonary disease, unspecified; E78.5 Hyperlipidemia, unspecified; E11.9 Type 2 diabetes mellitus without complications; E03.9 Hypothyroidism, unspecified; G47.30 Sleep apnea, unspecified; L40.9 Psoriasis, unspecified; F41.9 Anxiety disorder, unspecified; F32.9 Major depressive disorder, single episode, unspecified; M19.90 Unspecified osteoarthritis, unspecified site; Z85.828 Personal history of other malignant neoplasm of skin; Z90.49 Acquired absence of other specified parts of digestive tract; Z96.41 Presence of insulin pump (external) (internal); Z79.4 Long term (current) use of insulin; Z79.82 Long term (current) use of aspirin; Z88.5 Allergy status to narcotic agent; Z88.2 Allergy status to sulfonamides; Z88.4 Allergy status to anesthetic agent; Z88.1 Allergy status to other antibiotic agents; Z88.8 Allergy status to other drugs, medicaments and biological substances
CPT/HCPCS: 80053; 81003; 82948; 83690; 85027; 87086; 93005; 99281; 99284; J7030

== ENCOUNTER 2018-03-24 14:14 | Emergency (ER) | payer OTHER ==
[~2018-03-24] VITALS: Ht 165.1 cm; Wt 100.4 kg
[2018-03-24 15:29] LABS: HEMATOCRIT 40.2 % (36.0-46.0); MCH 28.2 PG (29.0-34.0); MCHC 34.8 G/DL (30.0-36.0); MCV 80.9 FL (83-99); PLATELET COUNT 184 K/uL (156-360); RBC DIS.WIDTH-CV 14.1 % (11.8-14.6); RBC DIS.WIDTH-SD 41.2 % (39-53); RED BLOOD COUNT 4.97 M/uL (3.80-5.20); WHITE BLOOD COUNT 8.2 K/uL (4.1-10.2)
[2018-03-24 15:33] LABS: CARBON DIOXIDE (BICARBONATE) 31.2 MEQ/L (20-31)
[2018-03-24 15:38] LABS: ALBUMIN 4.7 g/dL (3.2-4.8); CHLORIDE 95 mEq/L (99-109); POTASSIUM 4.1 mEq/L (3.7-5.4); SODIUM 132 mEq/L (136-147)
[2018-03-24 15:40] LABS: GLUCOSE 363 mg/dL (70-99)
[2018-03-24 15:42] LABS: TOTAL BILIRUBIN 0.5 mg/dL (0.0-1.0)
[2018-03-24 15:44] LABS: ALKALINE PHOSPHATASE 113 IU/L (3-129); CREATININE 1.4 mg/dL (0.6-1.3); GFR ESTIMATE (CALCULATED) 41 mL/min/
[2018-03-24 15:45] LABS: UREA NITROGEN (BUN) 33 mg/dL (9-23)
[2018-03-24 15:46] LABS: AST (GOT) 18 IU/L (2-34)
[2018-03-24 15:47] LABS: ALT (GPT) 30 IU/L (3-49)
[2018-03-24 16:20] LABS: APPEARANCE CLOUDY ((CLEAR)); BILIRUBIN NEGATIVE; BLOOD MODERATE; COLOR YELLOW ((YELLOW)); GLUCOSE (STRIP) >=500; KETONES NEGATIVE; LEUKOCYTES LARGE; NITRITE NEGATIVE; PROTEIN (STRIP) 30; SPECIFIC GRAVITY 1.015 (1.000-1.030); UROBILINOGEN 0.2 MG/DL (0.2-1.0)
[2018-03-24 16:45] LABS: BACTERIA RARE /HPF; EPITHELIAL CELLS 1+ /HPF; MUCUS NONE SEEN /LPF; UCUL ADDED? YES; WHITE BLOOD CELLS TNTC /HPF (0-5)
[2018-03-24] MEDS ORDERED: AUGMENTIN875 MG PO (18:08)
[2018-03-24] MEDS ORDERED: NOVOLOG 10100 UNITS/ SC (18:08)
[2018-03-24] MEDS ORDERED: LEVEMIR100 UNIT/2 SC (18:08)
[2018-03-24 18:13] VITALS: BP 120/71
== END 2018-03-24 18:14 | disposition home or self-care (01) ==
LOC: EME 14:14
PROVIDERS: Physician Assistant
DX: E11.65 Type 2 diabetes mellitus with hyperglycemia (principal); N39.0 Urinary tract infection, site not specified; I11.0 Hypertensive heart disease with heart failure; I50.9 Heart failure, unspecified; M79.7 Fibromyalgia; J44.9 Chronic obstructive pulmonary disease, unspecified; G47.30 Sleep apnea, unspecified; E78.5 Hyperlipidemia, unspecified; E03.9 Hypothyroidism, unspecified; L40.9 Psoriasis, unspecified; F41.9 Anxiety disorder, unspecified; F32.9 Major depressive disorder, single episode, unspecified; M19.90 Unspecified osteoarthritis, unspecified site; Z85.828 Personal history of other malignant neoplasm of skin; Z90.49 Acquired absence of other specified parts of digestive tract; Z96.41 Presence of insulin pump (external) (internal); Z79.4 Long term (current) use of insulin; Z79.82 Long term (current) use of aspirin; Z88.2 Allergy status to sulfonamides; Z88.5 Allergy status to narcotic agent; Z88.4 Allergy status to anesthetic agent; Z88.1 Allergy status to other antibiotic agents; Z88.8 Allergy status to other drugs, medicaments and biological substances
CPT/HCPCS: 80053; 81003; 82803; 82948; 85027; 87086; 99281; 99284; J7030

== ENCOUNTER 2018-04-22 15:51 | Emergency (ER) | payer OTHER ==
[~2018-04-22] VITALS: Ht 165.1 cm; Wt 103.2 kg
[~2018-04-22 15:51] MED LIST changes: +LEVEMIR100 UNIT/2 SC; +NOVOLOG 10100 UNITS/ SC
[2018-04-22 16:52] LABS: APPEARANCE CLOUDY ((CLEAR)); BILIRUBIN NEGATIVE; BLOOD MODERATE; COLOR YELLOW ((YELLOW)); GLUCOSE (STRIP) NEGATIVE; KETONES NEGATIVE; LEUKOCYTES LARGE; NITRITE NEGATIVE; PROTEIN (STRIP) 30; SPECIFIC GRAVITY 1.009 (1.000-1.030); UROBILINOGEN 0.2 MG/DL (0.2-1.0)
[2018-04-22 17:04] LABS: HEMATOCRIT 38.5 % (36.0-46.0); HEMOGLOBIN 12.8 G/DL (11.9-15.5); MCH 28.4 PG (29.0-34.0); MCHC 33.2 G/DL (30.0-36.0); MCV 85.4 FL (83-99); PLATELET COUNT 146 K/uL (156-360); RBC DIS.WIDTH-CV 14.7 % (11.8-14.6); RBC DIS.WIDTH-SD 45.9 % (39-53); RED BLOOD COUNT 4.51 M/uL (3.80-5.20); WHITE BLOOD COUNT 7.6 K/uL (4.1-10.2)
[2018-04-22 17:05] LABS: BACTERIA 1+ /HPF; EPITHELIAL CELLS 2+ /HPF; MUCUS NONE SEEN /LPF; WHITE BLOOD CELLS 40-50 /HPF (0-5)
[2018-04-22 17:14] LABS: CHLORIDE 102 mEq/L (99-109); POTASSIUM 4.5 mEq/L (3.7-5.4); SODIUM 141 mEq/L (136-147)
[2018-04-22 17:16] LABS: GLUCOSE 181 mg/dL (70-99)
[2018-04-22 17:20] LABS: GFR ESTIMATE (CALCULATED) 27 mL/min/
[2018-04-22 17:21] LABS: UREA NITROGEN (BUN) 41 mg/dL (9-23)
[2018-04-22] MEDS ORDERED: KEFLEX500 MG PO (19:26)
[2018-04-22 20:05] VITALS: BP 156/63
== END 2018-04-22 20:05 | disposition home or self-care (01) ==
LOC: EME 15:51
PROVIDERS: Physician Assistant
DX: N39.0 Urinary tract infection, site not specified (principal); E86.0 Dehydration; R53.1 Weakness; R42 Dizziness and giddiness; M54.9 Dorsalgia, unspecified; G51.0 Bell's palsy; I11.0 Hypertensive heart disease with heart failure; I50.9 Heart failure, unspecified; E03.9 Hypothyroidism, unspecified; E11.9 Type 2 diabetes mellitus without complications; Z96.41 Presence of insulin pump (external) (internal); Z79.4 Long term (current) use of insulin; Z79.82 Long term (current) use of aspirin; Z87.440 Personal history of urinary (tract) infections; Z85.828 Personal history of other malignant neoplasm of skin; Z88.1 Allergy status to other antibiotic agents; Z88.2 Allergy status to sulfonamides
CPT/HCPCS: 80048; 81003; 82948; 85027; 87077; 87086; 99281; 99285; J7030

== ENCOUNTER 2018-05-05 13:39 | Emergency (ER) | payer OTHER ==
[~2018-05-05] VITALS: Ht 165.1 cm; Wt 102.7 kg
[2018-05-05 16:47] LABS: APPEARANCE CLOUDY ((CLEAR)); BILIRUBIN NEGATIVE; BLOOD SMALL; COLOR YELLOW ((YELLOW)); GLUCOSE (STRIP) NEGATIVE; KETONES NEGATIVE; LEUKOCYTES LARGE; NITRITE NEGATIVE; PROTEIN (STRIP) 30; SPECIFIC GRAVITY 1.012 (1.000-1.030); UROBILINOGEN 0.2 MG/DL (0.2-1.0)
[2018-05-05 16:52] LABS: HEMATOCRIT 39.6 % (36.0-46.0); HEMOGLOBIN 13.9 G/DL (11.9-15.5); MCHC 35.1 G/DL (30.0-36.0); MCV 85.3 FL (83-99); PLATELET COUNT 166 K/uL (156-360); RBC DIS.WIDTH-CV 15.2 % (11.8-14.6); RBC DIS.WIDTH-SD 46.6 % (39-53); RED BLOOD COUNT 4.64 M/uL (3.80-5.20); WHITE BLOOD COUNT 8.2 K/uL (4.1-10.2)
[2018-05-05 16:56] LABS: AMPHETAMINE NEGATIVE (500 ng/mL); BARBITURATES NEGATIVE (200 ng/mL); BENZODIAZEPINES NEGATIVE (150 ng/mL); BUPRENORPHINE NEGATIVE (10 ng/mL); COCAINE NEGATIVE (150 ng/mL); METHADONE NEGATIVE (200 ng/mL); METHAMPHETAMINE NEGATIVE (500 ng/mL); OPIATES (MORPHINE) NEGATIVE (100 ng/mL); OXYCODONE NEGATIVE (100 ng/mL); PHENCYCLIDINE NEGATIVE (25 ng/mL); PROPOXYPHENE NEGATIVE (300 ng/mL); THC CANNABINOIDS NEGATIVE (50 ng/mL); TRICYCLIC ANTIDEPRESSANTS PRESUMPTIVE POSITIVE (300 ng/mL)
[2018-05-05 16:59] LABS: BACTERIA 1+ /HPF; EPITHELIAL CELLS 2+ /HPF; MUCUS TRACE /LPF; RED BLOOD CELLS RARE /HPF (0-5); UCUL ADDED? YES; WHITE BLOOD CELLS TNTC /HPF (0-5)
[2018-05-05 18:07] LABS: ALBUMIN 4.8 G/DL (3.2-4.8); CHLORIDE 99 MEQ/L (99-109); POTASSIUM 4.7 MEQ/L (3.7-5.4); SODIUM 140 MEQ/L (136-147); TOTAL BILIRUBIN 0.4 MG/DL (0.0-1.0)
[2018-05-05 18:13] LABS: ALKALINE PHOSPHATASE 74 IU/L (3-129); ALT (GPT) 28 IU/L (3-49); AST (GOT) 32 IU/L (2-34); CREATININE 1.8 MG/DL (0.6-1.3); GFR ESTIMATE (CALCULATED) 31 mL/min/; GLUCOSE 180 mg/dL (70-99); TOTAL PROTEIN 7.6 G/DL (6.4-8.3); UREA NITROGEN (BUN) 36 mg/dL (9-23)
[2018-05-05 20:03] VITALS: BP 131/56
== END 2018-05-05 20:03 | disposition home or self-care (01) ==
LOC: EME 13:39
PROVIDERS: Physician Assistant
DX: E86.0 Dehydration (principal); Z87.440 Personal history of urinary (tract) infections; I11.0 Hypertensive heart disease with heart failure; I50.9 Heart failure, unspecified; E11.9 Type 2 diabetes mellitus without complications; E78.5 Hyperlipidemia, unspecified; E03.9 Hypothyroidism, unspecified; G47.30 Sleep apnea, unspecified; M79.7 Fibromyalgia; J44.9 Chronic obstructive pulmonary disease, unspecified; K21.9 Gastro-esophageal reflux disease without esophagitis; L40.9 Psoriasis, unspecified; F41.9 Anxiety disorder, unspecified; F32.9 Major depressive disorder, single episode, unspecified; M19.90 Unspecified osteoarthritis, unspecified site; Z85.828 Personal history of other malignant neoplasm of skin; Z90.49 Acquired absence of other specified parts of digestive tract; Z96.41 Presence of insulin pump (external) (internal); Z79.82 Long term (current) use of aspirin; Z88.2 Allergy status to sulfonamides; Z88.1 Allergy status to other antibiotic agents; Z88.5 Allergy status to narcotic agent; Z88.4 Allergy status to anesthetic agent; Z88.8 Allergy status to other drugs, medicaments and biological substances
CPT/HCPCS: 80053; 81003; 82948; 85027; 87077; 87086; 87186; 99281; 99284; J7030

== ENCOUNTER 2018-05-10 16:27 | Inpatient (IN) | payer OTHER ==
[~2018-05-10] VITALS: Ht 165.1 cm; Wt 105.2 kg
[2018-05-10 17:08] LABS: BASOPHIL (%) 0.3 % (0-1); EOSINOPHIL (%) 5.1 % (0-5); EOSINOPHIL COUNT 0.4 K/uL (0-0.3); HEMATOCRIT 39.7 % (36.0-46.0); HEMOGLOBIN 13.2 G/DL (11.9-15.5); IMMATURE GRANULOCYTE (%) 0.6 % (0.0-0.7); LYMPHOCYTE (%) 15.6 % (15-42); LYMPHOCYTE COUNT 1.2 K/uL (1.0-2.8); MCH 28.4 PG (29.0-34.0); MCHC 33.2 G/DL (30.0-36.0); MCV 85.6 FL (83-99); MONOCYTE (%) 8.9 % (3-12); MONOCYTE COUNT 0.7 K/uL (0-0.8); NEUTROPHIL (%) 69.5 % (45-76); NEUTROPHIL COUNT 5.4 K/uL (1.8-6.4); PLATELET COUNT 176 K/uL (156-360); RBC DIS.WIDTH-CV 15.4 % (11.8-14.6); RBC DIS.WIDTH-SD 47.8 % (39-53); RED BLOOD COUNT 4.64 M/uL (3.80-5.20); WHITE BLOOD COUNT 7.8 K/uL (4.1-10.2)
[2018-05-10 17:25] LABS: CHLORIDE 105 mEq/L (99-109); POTASSIUM 5.4 mEq/L (3.7-5.4); SODIUM 141 mEq/L (136-147)
[2018-05-10 17:26] LABS: GLUCOSE 167 mg/dL (70-99)
[2018-05-10 17:26] LABS: APPEARANCE SL.HAZY ((CLEAR)); BILIRUBIN NEGATIVE; BLOOD SMALL; COLOR YELLOW ((YELLOW)); GLUCOSE (STRIP) NEGATIVE; KETONES NEGATIVE; LEUKOCYTES LARGE; NITRITE NEGATIVE; PROTEIN (STRIP) NEGATIVE; SPECIFIC GRAVITY 1.012 (1.000-1.030); UROBILINOGEN 0.2 MG/DL (0.2-1.0)
[2018-05-10 17:30] LABS: CREATININE 1.9 mg/dL (0.6-1.3); GFR ESTIMATE (CALCULATED) 29 mL/min/
[2018-05-10 17:31] LABS: UREA NITROGEN (BUN) 43 mg/dL (9-23)
[2018-05-10 17:34] LABS: TROP-I INTERPRETATION NEGATIVE; TROPONIN-I < 0.01 ng/mL (0.0-0.30)
[2018-05-10 18:08] LABS: BACTERIA RARE /HPF; EPITHELIAL CELLS 1+ /HPF; MUCUS NONE SEEN /LPF; UCUL ADDED? YES; WHITE BLOOD CELLS 20-30 /HPF (0-5)
[2018-05-10] MEDS ORDERED: ELAVIL50 MG PO (18:34)
[2018-05-10] MEDS ORDERED: ZONEGRAN100 MG PO (18:36)
[2018-05-10] MEDS ORDERED: ZANAFLEX4 MG PO (18:36)
[2018-05-10] MEDS ORDERED: TYLENOL ARTHRI650 MG PO (18:37)
[2018-05-10] MEDS ORDERED: DESYREL100 MG PO (18:37)
[2018-05-10] MEDS ORDERED: GLUCOPHAGE500 MG PO (18:37)
[2018-05-10] MEDS ORDERED: HUMULIN R500 UNITS/ SC (18:40)
[2018-05-10 22:41] VITALS: BP 187/75
[2018-05-11 04:14] VITALS: BP 127/59
[2018-05-11 05:26] LABS: HEMATOCRIT 36.7 % (36.0-46.0); HEMOGLOBIN 12.1 G/DL (11.9-15.5); MCH 27.8 PG (29.0-34.0); MCV 84.2 FL (83-99); PLATELET COUNT 163 K/uL (156-360); RBC DIS.WIDTH-CV 14.9 % (11.8-14.6); RBC DIS.WIDTH-SD 45.8 % (39-53); RED BLOOD COUNT 4.36 M/uL (3.80-5.20); WHITE BLOOD COUNT 5.9 K/uL (4.1-10.2)
[2018-05-11 06:15] LABS: CHLORIDE 103 MEQ/L (99-109); CREATININE 1.6 MG/DL (0.6-1.3); GFR ESTIMATE (CALCULATED) 35 mL/min/; POTASSIUM 5.4 MEQ/L (3.7-5.4); SODIUM 136 MEQ/L (136-147); UREA NITROGEN (BUN) 40 mg/dL (9-23)
[2018-05-11 06:27] LABS: GLUCOSE 359 mg/dL (70-99)
[2018-05-11 07:20] VITALS: BP 135/61
[2018-05-11 11:21] VITALS: BP 140/64
[2018-05-11 15:20] VITALS: BP 159/70
[2018-05-11 19:00] VITALS: BP 145/63
[2018-05-12 08:52] VITALS: BP 98/49
[2018-05-12 11:14] VITALS: BP 113/53
[2018-05-12 11:43] LABS: HEMATOCRIT 35.2 % (36.0-46.0); HEMOGLOBIN 11.7 G/DL (11.9-15.5); MCH 28.7 PG (29.0-34.0); MCHC 33.2 G/DL (30.0-36.0); MCV 86.5 FL (83-99); PLATELET COUNT 150 K/uL (156-360); RBC DIS.WIDTH-CV 15.5 % (11.8-14.6); RBC DIS.WIDTH-SD 49.3 % (39-53); RED BLOOD COUNT 4.07 M/uL (3.80-5.20); WHITE BLOOD COUNT 8.1 K/uL (4.1-10.2)
[2018-05-12 12:03] LABS: CHLORIDE 103 mEq/L (99-109); POTASSIUM 4.9 mEq/L (3.7-5.4); SODIUM 137 mEq/L (136-147)
[2018-05-12 12:05] LABS: GLUCOSE 191 mg/dL (70-99)
[2018-05-12 12:09] LABS: CREATININE 1.9 mg/dL (0.6-1.3); GFR ESTIMATE (CALCULATED) 29 mL/min/
[2018-05-12 12:10] LABS: UREA NITROGEN (BUN) 42 mg/dL (9-23)
[2018-05-12 15:42] VITALS: BP 166/71
[2018-05-12 19:17] VITALS: BP 155/70
[2018-05-13 00:23] VITALS: BP 125/59
[2018-05-13 05:07] VITALS: BP 106/51
[2018-05-13 05:35] LABS: HEMATOCRIT 33.5 % (36.0-46.0); HEMOGLOBIN 10.8 G/DL (11.9-15.5); MCH 27.6 PG (29.0-34.0); MCHC 32.2 G/DL (30.0-36.0); MCV 85.7 FL (83-99); PLATELET COUNT 150 K/uL (156-360); RBC DIS.WIDTH-CV 14.8 % (11.8-14.6); RED BLOOD COUNT 3.91 M/uL (3.80-5.20); WHITE BLOOD COUNT 6.7 K/uL (4.1-10.2)
[2018-05-13 06:08] LABS: CHLORIDE 104 MEQ/L (99-109); GFR ESTIMATE (CALCULATED) 41 mL/min/; MAGNESIUM 1.9 mg/dl (1.3-2.7); POTASSIUM 4.6 MEQ/L (3.7-5.4); SODIUM 138 MEQ/L (136-147); UREA NITROGEN (BUN) 38 mg/dL (9-23)
[2018-05-13 06:18] LABS: CREATININE 1.4 MG/DL (0.6-1.3); GLUCOSE 103 mg/dL (70-99)
[2018-05-13 09:00] VITALS: BP 136/75
[2018-05-13] MEDS ORDERED: LISINOPRIL40 MG PO (09:45)
[2018-05-13] MEDS ORDERED: CEFTRIAXONE1 G1 IV (09:45)
[2018-05-13 10:51] VITALS: BP 122/75
== END 2018-05-13 11:19 | disposition home or self-care (01) | DRG 312 ==
LOC: EME 16:27 → 4SOUTH 21:36 → EDOF 21:36 → ENRESERV 21:38 → 4SOUTH 22:35
PROVIDERS: Emergency Medicine; Hospitalist; Internal Medicine
DX: R55 Syncope and collapse (principal); N30.90 Cystitis, unspecified without hematuria; K21.9 Gastro-esophageal reflux disease without esophagitis; I13.0 Hypertensive heart and chronic kidney disease with heart failure and stage 1 through stage 4 chronic kidney disease, or unspecified chronic kidney disease; T37.0X5A Adverse effect of sulfonamides, initial encounter; I50.9 Heart failure, unspecified; N18.9 Chronic kidney disease, unspecified; L27.0 Generalized skin eruption due to drugs and medicaments taken internally; Z96.41 Presence of insulin pump (external) (internal); G51.0 Bell's palsy; E03.9 Hypothyroidism, unspecified; G47.30 Sleep apnea, unspecified; E11.69 Type 2 diabetes mellitus with other specified complication; E78.5 Hyperlipidemia, unspecified; E11.22 Type 2 diabetes mellitus with diabetic chronic kidney disease; Z91.09 Other allergy status, other than to drugs and biological substances; Z79.4 Long term (current) use of insulin; Z88.2 Allergy status to sulfonamides; Z88.1 Allergy status to other antibiotic agents; Z79.82 Long term (current) use of aspirin; Z87.440 Personal history of urinary (tract) infections; Z85.828 Personal history of other malignant neoplasm of skin; Z79.899 Other long term (current) drug therapy
CPT/HCPCS: 71046; 80048; 81003; 81025; 82948; 83605; 83735; 84484; 85025; 85027; 87086; 93005; 99281; 99285; J0696; J1644; J1815; J2930; J7030; Q0177

== ENCOUNTER 2018-05-17 17:54 | Inpatient (IN) | payer OTHER ==
[~2018-05-17] VITALS: Ht 165.1 cm; Wt 101.9 kg
[~2018-05-17 17:54] MED LIST changes: +CEFTRIAXONE1 G1 IV; +DESYREL100 MG PO; +ELAVIL50 MG PO; +GLUCOPHAGE500 MG PO; +TYLENOL ARTHRI650 MG PO; +ZANAFLEX4 MG PO; +ZONEGRAN100 MG PO
[2018-05-17 20:48] LABS: BASOPHIL (%) 0.7 % (0-1); BASOPHIL COUNT 0.1 K/uL (0-0.1); EOSINOPHIL (%) 2.3 % (0-5); EOSINOPHIL COUNT 0.3 K/uL (0-0.3); HEMATOCRIT 36.7 % (36.0-46.0); HEMOGLOBIN 12.3 G/DL (11.9-15.5); LYMPHOCYTE (%) 23.7 % (15-42); LYMPHOCYTE COUNT 2.5 K/uL (1.0-2.8); MCH 28.9 PG (29.0-34.0); MCHC 33.5 G/DL (30.0-36.0); MCV 86.2 FL (83-99); MONOCYTE (%) 8.7 % (3-12); MONOCYTE COUNT 0.9 K/uL (0-0.8); NEUTROPHIL (%) 62.6 % (45-76); NEUTROPHIL COUNT 6.7 K/uL (1.8-6.4); RBC DIS.WIDTH-CV 15.3 % (11.8-14.6); RED BLOOD COUNT 4.26 M/uL (3.80-5.20); WHITE BLOOD COUNT 10.7 K/uL (4.1-10.2)
[2018-05-17 20:52] LABS: PLATELET COUNT 203 K/uL (156-360)
[2018-05-17 21:05] LABS: CHLORIDE 102 mEq/L (99-109); SODIUM 138 mEq/L (136-147)
[2018-05-17 21:07] LABS: GLUCOSE 120 mg/dL (70-99)
[2018-05-17 21:08] LABS: POTASSIUM 5.9 mEq/L (3.7-5.4)
[2018-05-17 21:09] LABS: APPEARANCE CLOUDY ((CLEAR)); BILIRUBIN NEGATIVE; BLOOD SMALL; COLOR YELLOW ((YELLOW)); GLUCOSE (STRIP) NEGATIVE; KETONES NEGATIVE; LEUKOCYTES LARGE; NITRITE NEGATIVE; PROTEIN (STRIP) 30; SPECIFIC GRAVITY 1.011 (1.000-1.030); UROBILINOGEN 0.2 MG/DL (0.2-1.0)
[2018-05-17 21:11] LABS: GFR ESTIMATE (CALCULATED) 21 mL/min/
[2018-05-17 21:14] LABS: CREATININE 2.5 mg/dL (0.6-1.3); UREA NITROGEN (BUN) 58 mg/dL (9-23)
[2018-05-17 21:36] LABS: BACTERIA RARE /HPF; EPITHELIAL CELLS 1+ /HPF; MUCUS TRACE /LPF; RED BLOOD CELLS RARE /HPF (0-5); UCUL ADDED? YES; WHITE BLOOD CELLS TNTC /HPF (0-5)
[2018-05-17] MEDS ORDERED: ZESTRIL40 MG PO (22:33)
[2018-05-17 23:53] LABS: TROP-I INTERPRETATION NEGATIVE; TROPONIN-I < 0.01 ng/mL (0.0-0.30)
[2018-05-17 23:55] VITALS: BP 125/68
[2018-05-17 23:57] VITALS: BP 113/58
[2018-05-18 03:24] VITALS: BP 92/51
[2018-05-18 05:55] LABS: BASOPHIL COUNT 0.1 K/uL (0-0.1); EOSINOPHIL (%) 2.3 % (0-5); EOSINOPHIL COUNT 0.2 K/uL (0-0.3); HEMATOCRIT 35.4 % (36.0-46.0); HEMOGLOBIN 11.5 G/DL (11.9-15.5); LYMPHOCYTE (%) 22.6 % (15-42); MCH 27.9 PG (29.0-34.0); MCHC 32.5 G/DL (30.0-36.0); MCV 85.9 FL (83-99); MONOCYTE (%) 8.1 % (3-12); MONOCYTE COUNT 0.7 K/uL (0-0.8); NEUTROPHIL COUNT 5.7 K/uL (1.8-6.4); PLATELET COUNT 182 K/uL (156-360); RBC DIS.WIDTH-CV 15.3 % (11.8-14.6); RBC DIS.WIDTH-SD 47.8 % (39-53); RED BLOOD COUNT 4.12 M/uL (3.80-5.20); WHITE BLOOD COUNT 8.9 K/uL (4.1-10.2)
[2018-05-18 06:18] LABS: TROP-I INTERPRETATION NEGATIVE; TROPONIN-I 0.01 ng/mL (0.0-0.30)
[2018-05-18 06:24] LABS: ALBUMIN 4.1 G/DL (3.2-4.8); ALKALINE PHOSPHATASE 67 IU/L (3-129); ALT (GPT) 22 IU/L (3-49); AST (GOT) 17 IU/L (2-34); CHLORIDE 103 MEQ/L (99-109); DIRECT BILIRUBIN 0.1 mg/dL (0.0-0.3); GFR ESTIMATE (CALCULATED) 27 mL/min/; SODIUM 139 MEQ/L (136-147); TOTAL BILIRUBIN 0.3 MG/DL (0.0-1.0); TOTAL PROTEIN 6.5 G/DL (6.4-8.3); UREA NITROGEN (BUN) 53 mg/dL (9-23)
[2018-05-18 06:43] LABS: GLUCOSE 87 mg/dL (70-99)
[2018-05-18 07:47] VITALS: BP 141/64
[2018-05-18 11:33] VITALS: BP 123/56
[2018-05-18 15:35] VITALS: BP 133/63; BP 134/61
[2018-05-18 23:32] VITALS: BP 140/64
[2018-05-19 03:53] VITALS: BP 106/49
[2018-05-19 07:59] LABS: HEMATOCRIT 35.1 % (36.0-46.0); HEMOGLOBIN 11.7 G/DL (11.9-15.5); MCH 28.7 PG (29.0-34.0); MCHC 33.3 G/DL (30.0-36.0); MCV 86.2 FL (83-99); PLATELET COUNT 169 K/uL (156-360); RBC DIS.WIDTH-CV 15.2 % (11.8-14.6); RBC DIS.WIDTH-SD 47.7 % (39-53); RED BLOOD COUNT 4.07 M/uL (3.80-5.20)
[2018-05-19 08:05] VITALS: BP 131/60
[2018-05-19 08:11] LABS: CHLORIDE 106 mEq/L (99-109); POTASSIUM 4.9 mEq/L (3.7-5.4); SODIUM 140 mEq/L (136-147)
[2018-05-19 08:13] LABS: GLUCOSE 94 mg/dL (70-99)
[2018-05-19 08:17] LABS: GFR ESTIMATE (CALCULATED) 41 mL/min/
[2018-05-19 08:18] LABS: UREA NITROGEN (BUN) 34 mg/dL (9-23)
[2018-05-19 08:19] LABS: CREATININE 1.4 mg/dL (0.6-1.3)
[2018-05-19 12:42] VITALS: BP 137/87
[2018-05-19 16:48] VITALS: BP 137/85
[2018-05-20 00:28] VITALS: BP 136/63
[2018-05-20 05:00] VITALS: BP 90/49
[2018-05-20 08:00] VITALS: BP 124/60
[2018-05-20] MEDS ORDERED: MACROBID100 MG PO (10:42)
[2018-05-20] MEDS ORDERED: CEFTRIAXONE2 G1 IV (10:43)
== END 2018-05-20 12:48 | disposition home or self-care (01) | DRG 699 ==
LOC: EME 17:54 → 4SOUTH 23:03 → EDOF 23:03 → ENRESERV 23:06 → 4SOUTH 23:56
PROVIDERS: Emergency Medicine; Hospitalist; Nurse Practitioner Adult Health
DX: N31.2 Flaccid neuropathic bladder, not elsewhere classified (principal); R33.9 Retention of urine, unspecified; N30.90 Cystitis, unspecified without hematuria; N17.9 Acute kidney failure, unspecified; E87.5 Hyperkalemia; E86.0 Dehydration; M79.7 Fibromyalgia; K21.9 Gastro-esophageal reflux disease without esophagitis; G47.30 Sleep apnea, unspecified; E78.5 Hyperlipidemia, unspecified; E03.9 Hypothyroidism, unspecified; L40.9 Psoriasis, unspecified; G43.909 Migraine, unspecified, not intractable, without status migrainosus; F41.9 Anxiety disorder, unspecified; F32.9 Major depressive disorder, single episode, unspecified; E11.9 Type 2 diabetes mellitus without complications; I50.9 Heart failure, unspecified; I11.0 Hypertensive heart disease with heart failure; E66.01 Morbid (severe) obesity due to excess calories; K59.00 Constipation, unspecified; L21.9 Seborrheic dermatitis, unspecified; Z96.41 Presence of insulin pump (external) (internal); Z91.19 Patient's noncompliance with other medical treatment and regimen; Z79.4 Long term (current) use of insulin; Z79.82 Long term (current) use of aspirin; Z88.2 Allergy status to sulfonamides; Z88.5 Allergy status to narcotic agent; Z68.37 Body mass index [BMI] 37.0-37.9, adult; I25.2 Old myocardial infarction; Z85.828 Personal history of other malignant neoplasm of skin
CPT/HCPCS: 70450; 70551; 74176; 80048; 80076; 81003; 82140; 82948; 83605; 84132 91; 84484; 85025; 85027; 87040; 87086; 93306; 94799; 99281; 99284; G0378; J0696; J1644; J7030

== ENCOUNTER 2018-06-01 15:08 | Observation (INO) | payer OTHER ==
[~2018-06-01] VITALS: Ht 165.1 cm; Wt 104.1 kg
[~2018-06-01 15:08] MED LIST changes: +CEFTRIAXONE2 G1 IV; +MACROBID100 MG PO
[2018-06-01 15:25] LABS: HEMATOCRIT 36.3 % (36.0-46.0); HEMOGLOBIN 12.4 G/DL (11.9-15.5); MCH 28.7 PG (29.0-34.0); MCHC 34.2 G/DL (30.0-36.0); PLATELET COUNT 149 K/uL (156-360); RBC DIS.WIDTH-CV 15.2 % (11.8-14.6); RED BLOOD COUNT 4.32 M/uL (3.80-5.20); WHITE BLOOD COUNT 8.9 K/uL (4.1-10.2)
[2018-06-01 15:37] LABS: INTER. NORMALIZED RATIO 1.1
[2018-06-01 15:40] LABS: PTT 30.4 SEC (25-37)
[2018-06-01 15:50] LABS: TROP-I INTERPRETATION NEGATIVE; TROPONIN-I < 0.01 ng/mL (0.0-0.30)
[2018-06-01 16:27] LABS: AMYLASE 16 IU/L (1-118); CHLORIDE 94 MEQ/L (99-109); LIPASE 14 U/L (1.0-51.0); POTASSIUM 4.6 MEQ/L (3.7-5.4); SODIUM 133 MEQ/L (136-147); UREA NITROGEN (BUN) 33 mg/dL (9-23)
[2018-06-01 16:28] LABS: CREATININE 1.8 MG/DL (0.6-1.3); GFR ESTIMATE (CALCULATED) 31 mL/min/; GLUCOSE 310 mg/dL (70-99); SERUM ETHYL ALCOHOL < 10 mg/dL
[2018-06-01 17:20] LABS: AMPHETAMINE NEGATIVE (500 ng/mL); BARBITURATES NEGATIVE (200 ng/mL); BENZODIAZEPINES NEGATIVE (150 ng/mL); BUPRENORPHINE NEGATIVE (10 ng/mL); COCAINE NEGATIVE (150 ng/mL); METHADONE NEGATIVE (200 ng/mL); METHAMPHETAMINE NEGATIVE (500 ng/mL); OPIATES (MORPHINE) NEGATIVE (100 ng/mL); OXYCODONE NEGATIVE (100 ng/mL); PHENCYCLIDINE NEGATIVE (25 ng/mL); PROPOXYPHENE NEGATIVE (300 ng/mL); THC CANNABINOIDS NEGATIVE (50 ng/mL); TRICYCLIC ANTIDEPRESSANTS PRESUMPTIVE POSITIVE (300 ng/mL)
[2018-06-01] MEDS ORDERED: MACROBID100 MG PO (18:15)
[2018-06-01] MEDS ORDERED: METFORMIN HCL500 MG PO (18:20)
[2018-06-01 20:31] LABS: HDL CHOLESTEROL 28 MG/DL (Desirable>=50); NON-HDL CHOLESTEROL 216 mg/dL (Desirable<160); TOTAL CHOLESTEROL 244 mg/dL (Desirable<200); TRIGLYCERIDES 787 MG/DL (Normal: <150)
[2018-06-01 22:03] VITALS: BP 152/67
[2018-06-01 22:21] LABS: APPEARANCE CLOUDY ((CLEAR)); BILIRUBIN NEGATIVE; BLOOD SMALL; COLOR YELLOW ((YELLOW)); GLUCOSE (STRIP) 150; KETONES NEGATIVE; LEUKOCYTES LARGE; NITRITE NEGATIVE; PROTEIN (STRIP) 30; SPECIFIC GRAVITY 1.012 (1.000-1.030); UROBILINOGEN 0.2 MG/DL (0.2-1.0)
[2018-06-01 22:27] LABS: TROP-I INTERPRETATION NEGATIVE; TROPONIN-I < 0.01 ng/mL (0.0-0.30)
[2018-06-01 22:52] LABS: BACTERIA NONE SEEN /HPF; EPITHELIAL CELLS 1+ /HPF; MUCUS TRACE /LPF; RED BLOOD CELLS 30-40 /HPF (0-5); UCUL ADDED? YES; WHITE BLOOD CELLS TNTC /HPF (0-5)
[2018-06-01 23:15] VITALS: BP 154/65
[2018-06-02] VITALS (8 sets, daily range): BP systolic 97–189; BP diastolic 53–72
[2018-06-02 05:53] LABS: BASOPHIL (%) 0.6 % (0-1); BASOPHIL COUNT 0.1 K/uL (0-0.1); EOSINOPHIL (%) 3.4 % (0-5); EOSINOPHIL COUNT 0.3 K/uL (0-0.3); HEMATOCRIT 31.9 % (36.0-46.0); IMMATURE GRANULOCYTE (%) 0.5 % (0.0-0.7); LYMPHOCYTE (%) 21.7 % (15-42); LYMPHOCYTE COUNT 1.7 K/uL (1.0-2.8); MCH 28.3 PG (29.0-34.0); MCHC 32.6 G/DL (30.0-36.0); MCV 86.7 FL (83-99); MONOCYTE (%) 10.6 % (3-12); MONOCYTE COUNT 0.9 K/uL (0-0.8); NEUTROPHIL (%) 63.2 % (45-76); NEUTROPHIL COUNT 5.1 K/uL (1.8-6.4); PLATELET COUNT 128 K/uL (156-360); RBC DIS.WIDTH-CV 15.6 % (11.8-14.6); RBC DIS.WIDTH-SD 48.7 % (39-53); RED BLOOD COUNT 3.68 M/uL (3.80-5.20)
[2018-06-02 06:00] LABS: TROP-I INTERPRETATION NEGATIVE; TROPONIN-I < 0.01 ng/mL (0.0-0.30)
[2018-06-02 06:03] LABS: HEMOGLOBIN 10.4 G/DL (11.9-15.5)
[2018-06-02 06:07] LABS: ALBUMIN 3.7 G/DL (3.2-4.8); ALKALINE PHOSPHATASE 60 IU/L (3-129); ALT (GPT) 22 IU/L (3-49); AST (GOT) 20 IU/L (2-34); CHLORIDE 101 MEQ/L (99-109); CREATININE 1.9 MG/DL (0.6-1.3); DIRECT BILIRUBIN 0.1 mg/dL (0.0-0.3); GFR ESTIMATE (CALCULATED) 29 mL/min/; GLUCOSE 245 mg/dL (70-99); POTASSIUM 4.4 MEQ/L (3.7-5.4); SODIUM 136 MEQ/L (136-147); UREA NITROGEN (BUN) 34 mg/dL (9-23)
[2018-06-02 06:28] LABS: TOTAL BILIRUBIN 0.3 MG/DL (0.0-1.0)
[2018-06-02 09:22] LABS: HEMOGLOBIN A1c (GLYCOHEMOGLOB) 8.5 % (Below 5.7)
[2018-06-03 03:40] VITALS: BP 129/63
[2018-06-03 05:59] LABS: HEMATOCRIT 31.5 % (36.0-46.0); HEMOGLOBIN 10.7 G/DL (11.9-15.5); MCH 29.1 PG (29.0-34.0); MCV 85.6 FL (83-99); PLATELET COUNT 117 K/uL (156-360); RBC DIS.WIDTH-CV 15.1 % (11.8-14.6); RBC DIS.WIDTH-SD 47.5 % (39-53); RED BLOOD COUNT 3.68 M/uL (3.80-5.20); WHITE BLOOD COUNT 4.8 K/uL (4.1-10.2)
[2018-06-03 06:16] LABS: ALBUMIN 3.7 G/DL (3.2-4.8); CHLORIDE 101 MEQ/L (99-109); GFR ESTIMATE (CALCULATED) 49 mL/min/; GLUCOSE 248 mg/dL (70-99); PHOSPHORUS 2.7 mg/dL (2.5-4.9); POTASSIUM 4.5 MEQ/L (3.7-5.4); SODIUM 136 MEQ/L (136-147); UREA NITROGEN (BUN) 31 mg/dL (9-23); URIC ACID 6.7 mg/dL (3.1-9.2)
[2018-06-03 06:24] LABS: CREATININE 1.2 MG/DL (0.6-1.3)
[2018-06-03 06:51] LABS: IRON 63 MCG/DL (35-150); TRANSFERRIN (TIBC) 226.2 mg/dL (215-380); TRANSFERRIN SATUR. 28 % (20-55)
[2018-06-03 07:13] VITALS: BP 116/57
[2018-06-03 09:48] LABS: THYROTROPIN (TSH) 1.9 MIU/L (0.4-5.5)
[2018-06-03] MEDS ORDERED: LISINOPRIL20 MG PO (11:57)
[2018-06-03] MEDS ORDERED: FUROSEMIDE40 MG PO (11:57)
[2018-06-03 12:16] VITALS: BP 148/65
== END 2018-06-03 14:33 | disposition home or self-care (01) ==
LOC: EME 15:08 → EDOF 19:07 → ENRESERV 19:10 → 4SOUTH 21:34
PROVIDERS: Emergency Medicine; Hospitalist; Internal Medicine Nephrology; Physician Assistant Medical
DX: R55 Syncope and collapse (principal); N17.9 Acute kidney failure, unspecified; Z87.440 Personal history of urinary (tract) infections; B37.49 Other urogenital candidiasis; E86.0 Dehydration; G47.33 Obstructive sleep apnea (adult) (pediatric); Z91.19 Patient's noncompliance with other medical treatment and regimen; E66.01 Morbid (severe) obesity due to excess calories; G51.0 Bell's palsy; E78.5 Hyperlipidemia, unspecified; E11.65 Type 2 diabetes mellitus with hyperglycemia; I11.0 Hypertensive heart disease with heart failure; I50.32 Chronic diastolic (congestive) heart failure; L21.9 Seborrheic dermatitis, unspecified; E11.42 Type 2 diabetes mellitus with diabetic polyneuropathy; Z85.828 Personal history of other malignant neoplasm of skin; Z86.73 Personal history of transient ischemic attack (TIA), and cerebral infarction without residual deficits; L40.9 Psoriasis, unspecified; Z88.1 Allergy status to other antibiotic agents; Z88.2 Allergy status to sulfonamides; Z88.5 Allergy status to narcotic agent; Z88.8 Allergy status to other drugs, medicaments and biological substances; Z96.41 Presence of insulin pump (external) (internal)
CPT/HCPCS: 70450; 70551; 76770; 80047; 80048; 80061; 80069; 80076; 81003; 82150; 82570; 82948; 83036; 83540; 83605; 83690; 84156; 84443; 84466; 84484; 84550; 85025; 85027; 85610; 85730; 87040; 87086; 89190; 99281; 99285; G0378; G0480; J0696; J1644; J7030